=== PATIENT | female | born 1940 | race Caucasian/White ===

== ENCOUNTER 2016-08-09 23:58 | Emergency (ER) | payer MEDICARE, BC ==
[2016-08-10 00:16] VITALS: TEMP 97; O2SAT 96
[2016-08-10] MEDS ORDERED: KETOROLAC TROMETHAMINE 30 MG/ML SOL IM ONE (00:45)
[2016-08-10] MEDS ORDERED: ENOXAPARIN 100 MG SOL SC ONE ×2 (00:50→00:53)
[2016-08-10] MEDS ORDERED: KETOROLAC TROMETHAMINE 30 MG/ML SOL ONE (01:07)
[2016-08-10 01:15] VITALS: BP 162/72; PULSE 66; RESP 18
== END 2016-08-10 01:10 | disposition home or self-care (01) | DRG 556 ==
LOC: ED 23:58
DX: M79.605 Pain in left leg (principal); M79.89 Other specified soft tissue disorders
CPT/HCPCS: 96372; 99283; J1650; J1885

== ENCOUNTER 2017-07-12 12:44 | Outpatient (CLI) | payer MEDICARE, BC ==
[2016-08-10 00:16] VITALS: O2SAT 96
== END 2017-07-12 12:45 | disposition home or self-care (01) | DRG 554 ==
LOC: CONVCARE 12:44
PROVIDERS: ATTEND Orthopaedic Surgery
DX: M17.12 Unilateral primary osteoarthritis, left knee (principal); Z96.651 Presence of right artificial knee joint
CPT/HCPCS: 73562

== ENCOUNTER 2017-08-23 05:17 | Inpatient (IN) | payer MEDICARE, BC ==
[~2017-08-23 05:17] MED LIST: LACTATED RINGERS 1,000 ML IV ONE; LACTATED RINGERS 1,000 ML IV SCH; SCOPOLAMINE 1.5MG PATCH TD SCH
[2017-08-23] MEDS ORDERED: SODIUM CHLORIDE 0.9% FLUSH 10 ML SOL IV PRN (05:30)
[2017-08-23] MEDS ORDERED: SCOPOLAMINE 1.5MG PATCH TD SCH (06:00)
[2017-08-23] MEDS ORDERED: LACTATED RINGERS 1,000 ML IV ONE (06:30)
[2017-08-23] MEDS: LACTATED RINGERS 1,000 ML IV SCH (06:39)
[2017-08-23] MEDS ORDERED: SODIUM CHLORIDE 20 ML 20 ML ONE (06:52)
[2017-08-23] MEDS ORDERED: CEFAZOLIN SODIUM 1 GM PDS ONE ×2 (06:56→18:35)
[2017-08-23] MEDS ORDERED: ONDANSETRON HCL 4 MG/2 ML SOL ONE (07:35)
[2017-08-23] MEDS ORDERED: MIDAZOLAM 2 MG/2 ML SOL ONE ×2 (07:35→09:13)
[2017-08-23] MEDS ORDERED: MORPHINE SULFATE 0.5 MG/ML SOL ONE (07:35)
[2017-08-23] MEDS ORDERED: DEXAMETHASONE 20 MG/5 ML (4 MG/ML SOL) ONE (07:35)
[2017-08-23] MEDS ORDERED: PROPOFOL 500 MG/50 ML EMU IV ONE (07:35)
[2017-08-23] MEDS ORDERED: PHENYLEPHRINE HYDROCHLORIDE 10 MG/ML SOL ONE (07:38)
[2017-08-23] MEDS ORDERED: TRANEXAMIC ACID 100 MG/ML SOL ONE (07:38)
[2017-08-23] MEDS: BUPIVACAINE HCL 0.25% MPF 30 ML SOL INFIL ONE ×2 (09:22→09:49)
[2017-08-23] MEDS: BUPIVACAINE LIPOSOME 20 ML SUS ONE ×2 (09:22→09:49)
[2017-08-23] MEDS ORDERED: ONDANSETRON 4 MG ODT BU PRN (11:24)
[2017-08-23] MEDS ORDERED: DIAZEPAM 5 MG TAB PO PRN (11:24)
[2017-08-23] MEDS ORDERED: ZOLPIDEM TARTRATE 5 MG TAB PO PRN (11:24)
[2017-08-23] MEDS ORDERED: FLEET ENEMA PR PRN (11:24)
[2017-08-23] MEDS ORDERED: ALUMINUM/MAGNESIUM 30 ML SUS PO PRN (11:24)
[2017-08-23] MEDS ORDERED: SODIUM CHLORIDE 0.9% 500 ML 500 ML IV PRN (11:24)
[2017-08-23] MEDS ORDERED: ACETAMINOPHEN 325 MG PO PRN (11:24)
[2017-08-23] MEDS ORDERED: BISACODYL 10 MG SUP PR PRN (11:24)
[2017-08-23] MEDS ORDERED: MAGNESIUM HYDROXIDE 30 ML SUS PO PRN (11:24)
[2017-08-23] MEDS ORDERED: ONDANSETRON HCL 4 MG/2 ML SOL IV PRN (11:24)
[2017-08-23] MEDS: SODIUM CHLORIDE 0.9% FLUSH 10 ML SOL IV SCH ×4 (12:00→20:38)
[2017-08-23] MEDS ORDERED: ALBUTEROL HFA 60 PUFF/INHALER INH PRN (12:46)
[2017-08-23] MEDS: DEXTROSE/SALINE 0.45/KCL 20MEQ 1,000 ML/1,000 ML SOL IV SCH (16:12)
[2017-08-23] MEDS: METFORMIN HYDROCHLORIDE 500 MG TAB PO SCH (18:05)
[2017-08-23] MEDS: CEFAZOLIN SODIUM 1 GM PDS 2 GM in SODIUM CHLORIDE 0.9% 100 ML 100 ML IV SCH (18:10)
[2017-08-23] MEDS: PRAVASTATIN SODIUM 20 MG TAB PO SCH (18:27)
[2017-08-23] MEDS: NOVOLOG FLEXPEN SC SCH ×2 (18:30→20:49)
[2017-08-23] MEDS ORDERED: SODIUM CHLORIDE 0.9% 100 ML 100 ML IV ONE (18:35)
[2017-08-23] MEDS: GLIPIZIDE 5 MG TAB PO SCH (20:38)
[2017-08-23] MEDS: BECLOMETHASONE INH SCH (20:39)
[2017-08-23] MEDS: SENNOSIDES A AND B 8.6 MG TAB PO SCH (20:40)
[2017-08-23] MEDS: MONTELUKAST SODIUM 10 MG TAB PO SCH (20:40)
[2017-08-23] MEDS: GABAPENTIN 300 MG CAP PO SCH (20:40)
[2017-08-23] MEDS: ATENOLOL 25 MG TAB PO SCH (20:41)
[2017-08-23] MEDS: APAP/OXYCODONE 325/5 TAB PO PRN (20:56)
[2017-08-24] MEDS ORDERED: CEFAZOLIN SODIUM 1 GM PDS ONE (01:43)
[2017-08-24] MEDS ORDERED: SODIUM CHLORIDE 0.9% 100 ML 100 ML IV ONE (01:43)
[2017-08-24] MEDS: CEFAZOLIN SODIUM 1 GM PDS 2 GM in SODIUM CHLORIDE 0.9% 100 ML 100 ML IV SCH (01:59)
[2017-08-24] MEDS: APAP/OXYCODONE 325/5 TAB PO PRN ×4 (01:59→21:12)
[2017-08-24] MEDS: DEXTROSE/SALINE 0.45/KCL 20MEQ 1,000 ML/1,000 ML SOL IV SCH ×2 (02:38→11:17)
[2017-08-24] MEDS: SODIUM CHLORIDE 0.9% FLUSH 10 ML SOL IV SCH ×3 (02:46→21:10)
[2017-08-24 07:29] LABS: HEMOGLOBIN 12.3 gm/dl (12.0-15.5); MEAN CORPUSCULAR HEMOGLOBIN 30.8 pg (27.0-32.0); MEAN CORPUSCULAR HGB CONC 34.3 gm/dl (32.0-36.0)
[2017-08-24] MEDS: METFORMIN HYDROCHLORIDE 500 MG TAB PO SCH ×2 (07:35→17:03)
[2017-08-24] MEDS: LACTATED RINGERS 1,000 ML IV SCH (07:49)
[2017-08-24] MEDS: NOVOLOG FLEXPEN SC SCH ×4 (08:23→21:37)
[2017-08-24] MEDS ORDERED: RIVAROXABAN 10 MG TAB PO SCH (09:00)
[2017-08-24] MEDS: LOSARTAN POTASSIUM 50 MG TAB PO SCH (09:43)
[2017-08-24] MEDS: GLIPIZIDE 5 MG TAB PO SCH ×2 (09:44→21:11)
[2017-08-24] MEDS: HYDROCHLOROTHIAZIDE 25 MG TAB PO SCH (09:44)
[2017-08-24] MEDS: FUROSEMIDE 20 MG TAB PO SCH (09:44)
[2017-08-24] MEDS: GABAPENTIN 300 MG CAP PO SCH ×2 (09:44→21:11)
[2017-08-24] MEDS: AMLODIPINE 5 MG TAB PO SCH (09:45)
[2017-08-24] MEDS: BECLOMETHASONE INH SCH ×2 (09:45→21:11)
[2017-08-24] MEDS: RIVAROXABAN 10 MG TAB PO SCH (09:46)
[2017-08-24] MEDS: ATENOLOL 25 MG TAB PO SCH ×2 (09:46→21:12)
[2017-08-24] MEDS: PRAVASTATIN SODIUM 20 MG TAB PO SCH (17:36)
[2017-08-24] MEDS: SENNOSIDES A AND B 8.6 MG TAB PO SCH (21:12)
[2017-08-24] MEDS: MONTELUKAST SODIUM 10 MG TAB PO SCH (21:12)
[2017-08-25] MEDS: APAP/OXYCODONE 325/5 TAB PO PRN ×2 (02:57→06:18)
[2017-08-25] MEDS: SODIUM CHLORIDE 0.9% FLUSH 10 ML SOL IV SCH ×4 (02:58→20:27)
[2017-08-25] MEDS: METFORMIN HYDROCHLORIDE 500 MG TAB PO SCH ×2 (06:18→17:04)
[2017-08-25] MEDS: NOVOLOG FLEXPEN SC SCH ×4 (06:20→20:30)
[2017-08-25 07:20] LABS: HEMOGLOBIN 11.2 gm/dl (12.0-15.5); MEAN CORPUSCULAR HEMOGLOBIN 30.7 pg (27.0-32.0); MEAN CORPUSCULAR HGB CONC 34.1 gm/dl (32.0-36.0)
[2017-08-25] MEDS: BECLOMETHASONE INH SCH ×2 (08:57→20:26)
[2017-08-25] MEDS: GLIPIZIDE 5 MG TAB PO SCH ×2 (08:58→20:25)
[2017-08-25] MEDS: FUROSEMIDE 20 MG TAB PO SCH (08:58)
[2017-08-25] MEDS: AMLODIPINE 5 MG TAB PO SCH (08:58)
[2017-08-25] MEDS: HYDROCHLOROTHIAZIDE 25 MG TAB PO SCH (08:58)
[2017-08-25] MEDS: ATENOLOL 25 MG TAB PO SCH ×2 (08:58→20:27)
[2017-08-25] MEDS: LOSARTAN POTASSIUM 50 MG TAB PO SCH (08:59)
[2017-08-25] MEDS: RIVAROXABAN 10 MG TAB PO SCH (09:01)
[2017-08-25] MEDS: APAP/HYDROCODONE 325/5 TAB PO PRN ×3 (10:53→19:08)
[2017-08-25] MEDS: PRAVASTATIN SODIUM 20 MG TAB PO SCH (17:05)
[2017-08-25] MEDS: MONTELUKAST SODIUM 10 MG TAB PO SCH (20:26)
[2017-08-25] MEDS: SENNOSIDES A AND B 8.6 MG TAB PO SCH (20:27)
[2017-08-26] MEDS: SODIUM CHLORIDE 0.9% FLUSH 10 ML SOL IV SCH (02:00)
[2017-08-26] MEDS: APAP/HYDROCODONE 325/5 TAB PO PRN ×6 (02:15→21:48)
[2017-08-26] MEDS: METFORMIN HYDROCHLORIDE 500 MG TAB PO SCH ×2 (06:36→16:37)
[2017-08-26] MEDS: NOVOLOG FLEXPEN SC SCH ×4 (06:38→21:51)
[2017-08-26 07:25] LABS: MEAN CORPUSCULAR HEMOGLOBIN 30.4 pg (27.0-32.0); MEAN CORPUSCULAR HGB CONC 34.4 gm/dl (32.0-36.0)
[2017-08-26] MEDS: LOSARTAN POTASSIUM 50 MG TAB PO SCH (09:02)
[2017-08-26] MEDS: GLIPIZIDE 5 MG TAB PO SCH ×2 (09:02→21:49)
[2017-08-26] MEDS: AMLODIPINE 5 MG TAB PO SCH (09:03)
[2017-08-26] MEDS: HYDROCHLOROTHIAZIDE 25 MG TAB PO SCH (09:03)
[2017-08-26] MEDS: BECLOMETHASONE INH SCH ×2 (09:03→21:47)
[2017-08-26] MEDS: RIVAROXABAN 10 MG TAB PO SCH (09:03)
[2017-08-26] MEDS: ATENOLOL 25 MG TAB PO SCH ×2 (09:03→21:50)
[2017-08-26] MEDS: FUROSEMIDE 20 MG TAB PO SCH (09:03)
[2017-08-26] MEDS: PRAVASTATIN SODIUM 20 MG TAB PO SCH (18:15)
[2017-08-26] MEDS: SENNOSIDES A AND B 8.6 MG TAB PO SCH (21:48)
[2017-08-26] MEDS: MONTELUKAST SODIUM 10 MG TAB PO SCH (21:50)
[2017-08-27] MEDS: APAP/HYDROCODONE 325/5 TAB PO PRN ×3 (03:41→12:35)
[2017-08-27] MEDS: METFORMIN HYDROCHLORIDE 500 MG TAB PO SCH (06:27)
[2017-08-27] MEDS: NOVOLOG FLEXPEN SC SCH ×2 (06:45→12:25)
[2017-08-27 07:18] LABS: CALCIUM 8.5 mg/dl (8.5-10.1); CARBON DIOXIDE 30.2 mEq/L (21-32); CREATININE 0.97 mg/dl (0.60-1.00); POTASSIUM 3.4 mMol/L (3.5-5.1)
[2017-08-27] MEDS: BECLOMETHASONE INH SCH (08:40)
[2017-08-27] MEDS: AMLODIPINE 5 MG TAB PO SCH (08:42)
[2017-08-27] MEDS: RIVAROXABAN 10 MG TAB PO SCH (08:42)
[2017-08-27] MEDS: GLIPIZIDE 5 MG TAB PO SCH (08:42)
[2017-08-27] MEDS: HYDROCHLOROTHIAZIDE 25 MG TAB PO SCH (08:43)
[2017-08-27] MEDS: FUROSEMIDE 20 MG TAB PO SCH (08:43)
[2017-08-27] MEDS: ATENOLOL 25 MG TAB PO SCH (08:43)
[2017-08-27] MEDS: LOSARTAN POTASSIUM 50 MG TAB PO SCH (08:44)
[2017-08-27 09:12] VITALS: BP 138/68; TEMP 98.4
[2017-08-27 12:41] VITALS: PULSE 80; RESP 18; O2SAT 92
== END 2017-08-27 13:40 | disposition swing bed (61) | DRG 470 ==
LOC: ACUTE CARE 05:17
PROVIDERS: ADMIT Orthopaedic Surgery; ATTEND Orthopaedic Surgery
PROC: F01M5ZZ Range of Motion and Joint Integrity Assessment of Musculoskeletal System - Whole Body (ICD-10-PCS; 2017-08-23)
PROC: F0134ZZ Motor Function Assessment of Neurological System - Whole Body (ICD-10-PCS; 2017-08-23)
PROC: 0SRD0J9 Replacement of Left Knee Joint with Synthetic Substitute, Cemented, Open Approach (ICD-10-PCS; principal; 2017-08-23 08:00)
PROC: F02Z3ZZ Grooming/Personal Hygiene Assessment (ICD-10-PCS; 2017-08-24)
PROC: F02Z1FZ Dressing Assessment using Assistive, Adaptive, Supportive or Protective Equipment (ICD-10-PCS; 2017-08-24)
DX: M17.12 Unilateral primary osteoarthritis, left knee (principal); E11.9 Type 2 diabetes mellitus without complications; I10 Essential (primary) hypertension; Z96.652 Presence of left artificial knee joint; R33.9 Retention of urine, unspecified
CPT/HCPCS: 36415; 51798; 71045; 73560; 80048; 82962; 85027; 85049; 94150; 94640; 99070; J0690; J1100; J2250; J2274; J2405; A6232; A9270-GY; J1815; J2370; J2704; J3490

== ENCOUNTER 2017-10-04 10:48 | Outpatient (CLI) | payer MEDICARE, BC ==
[2017-08-27 12:41] VITALS: O2SAT 92
== END 2017-10-04 10:49 | disposition home or self-care (01) | DRG 561 ==
LOC: CONVCARE 10:48
PROVIDERS: ATTEND Orthopaedic Surgery
DX: Z47.1 Aftercare following joint replacement surgery (principal); Z96.652 Presence of left artificial knee joint
CPT/HCPCS: 73560